=== PATIENT | female | born 1995 | race Caucasian/White ===

== ENCOUNTER → 2017-06-27 | Outpatient (CLI) | payer OTHER ==
[~2017-06-27] MED LIST: Pseudoephedrine30 MG PO
[2017-06-28 10:02] LABS: Source Vaginal/Cervical
== END ==
LOC: LAB 16:34 → LAB SHORT 16:34
PROVIDERS: Advanced Practice Midwife
DX: Z34.80 Encounter for supervision of other normal pregnancy, unspecified trimester (principal); Z11.3 Encounter for screening for infections with a predominantly sexual mode of transmission
CPT/HCPCS: 87491; 87591; 87661; G0123